=== PATIENT | female | born 1940 | race Two or more races ===

== ENCOUNTER 2018-10-30 12:37 | Emergency (ER) | payer SELFPAY ==
--- NOTE | 2018-10-30 13:09 | ER Document Report ---
ED General - General Chief Complaint: Leg Pain Stated Complaint: RIGHT LEG PAIN Time Seen by Provider: 10/30/18 12:55 Primary Care Provider: JOEL YOUSSEF MD [Primary Care Provider] - Follow up as needed Mode of Arrival: Ambulatory Information source: Patient, Relative, [facility] Records Notes: 78-year-old female with type 2 diabetes, hyperlipidemia, hypertension presents with complaint of right lower extremity pain that started 3 years prior to arrival. Patient recently arrived from [place] to her family here in [place] who is concerned for this right leg pain. Patient denies any fever, chills, chest pain, shortness of breath, abdominal pain, history of PE, DVT. TRAVEL OUTSIDE OF THE [place] IN LAST 30 DAYS: No - HPI Onset: Other Onset/Duration: Persistent Quality of pain: Achy Severity: Moderate Associated symptoms: denies: Chest pain, Fever, Hurts to breath, Leg swelling, Shortness of breath Exacerbated by: Movement, Walking Relieved by: Remaining still Similar symptoms previously: Yes - For 3 years Recently seen / treated by doctor: No - Related Data Allergies/Adverse Reactions: ciprofloxacin [From Cipro] Allergy (Verified 10/30/18 12:38) Past Medical History - General Information source: Patient, Relative - Social History Smoking Status: Never Smoker Chew tobacco use (# tins/day): No Frequency of alcohol use: None Drug Abuse: None Lives with: Family Family History: Reviewed & Not Pertinent Patient has suicidal ideation: No Patient has homicidal ideation: No - Past Medical History Cardiac Medical History: Reports: Hx Hypercholesterolemia, Hx Hypertension Endocrine Medical History: Reports: Hx Diabetes Mellitus Type 2 Renal/ Medical History: Denies: Hx Peritoneal Dialysis Review of Systems - Review of Systems Notes: REVIEW OF SYSTEMS: CONSTITUTIONAL : Denies fever, chills, or sweats. Denies recent illness. Denies weight loss, recent hospitalizations. EENT: Denies visual changes, eye pain. Denies sore throat, oral lesions, difficulty swallowing. CARDIOVASCULAR: Denies chest pain. Denies palpitations. Denies lower extremity edema. RESPIRATORY: Denies cough. Denies shortness of breath, wheezing. GASTROINTESTINAL: Denies abdominal pain or distention. Denies nausea, vomiting, or diarrhea. Denies blood in vomitus, stools, or per rectum. Denies black, tarry stools. Denies constipation. GENITOURINARY: Denies difficulty urinating, painful urination, frequency, blood in urine, or vaginal discharge. MUSCULOSKELETAL: Denies back or neck pain or stiffness. SKIN: Denies rash, lesions or sores. HEMATOLOGIC : Denies easy bruising or bleeding. LYMPHATIC: Denies swollen glands. NEUROLOGICAL: Denies confusion or altered mental status. Denies loss of consciousness. Denies dizziness or lightheadedness. Denies headache. Denies weakness or paralysis. Denies problems difficulty with ambulation, slurred speech. Denies sensory loss, numbness, or tingling. Denies seizures. PSYCHIATRIC: Denies anxiety or stress. Denies depression, suicidal ideation, or homicidal ideation. Denies visual or auditory hallucinations. Physical Exam - Vital signs Vitals: Temp Pulse Resp BP Pulse Ox 98.8 F 113 H 16 159/63 H 95 10/30/18 12:45 10/30/18 12:45 10/30/18 12:45 10/30/18 12:45 10/30/18 12:45 - Notes Notes: PHYSICAL EXAMINATION: GENERAL: Well-appearing, well-nourished and in no acute distress. HEAD: Atraumatic, normocephalic. EYES: Pupils equal round and reactive to light, extraocular movements intact, conjunctiva are normal. ENT: Nares patent, oropharynx clear without exudates. Moist mucous membranes. NECK: Normal range of motion, supple without lymphadenopathy LUNGS: Breath sounds clear to auscultation bilaterally and equal. No wheezes rales or rhonchi. HEART: Regular rate and rhythm without murmurs ABDOMEN: Soft, nontender, nondistended abdomen. No guarding, no rebound. No masses appreciated. Female : deferred Musculoskeletal: Normal range of motion, no pitting or edema. No cyanosis. No calf pain with palpation no erythema, no swelling. Pain with palpation to the medial aspect of the knee. Crepitus over the patella. NEUROLOGICAL: Cranial nerves grossly intact. Normal speech, normal gait. Normal sensory, motor exams PSYCH: Normal mood, normal affect. SKIN: Warm, Dry, normal turgor, no rashes or lesions noted. Course - Re-evaluation Re-evalutation: 10/31/18 12:44 Venous Doppler Study 10/30/18 13:07 IMPRESSION: NO EVIDENCE DVT OR SVT IN THE RIGHT LEG. Chest X-Ray 10/30/18 13:08 IMPRESSION: NO ACUTE DISEASE. Knee X-Ray 10/30/18 13:08 IMPRESSION: Degenerative arthritis of the right knee. Temp Pulse Resp BP Pulse Ox 98.8 F 90 16 135/70 H 98 10/30/18 12:45 10/30/18 13:09 10/30/18 15:01 10/30/18 15:01 10/30/18 15:01 78-year-old female presents with complaint of right lower extremity pain that has been ongoing for 3 years. Patiently recently arrived from [place] to live with her family who is at the bedside and is providing translation. Vital signs reviewed and within normal limits. Patient does not appear toxic or dehydrated. She is in no acute distress. Nursing notes reviewed. Patient has not been here previously. Venous Doppler of the right lower extremity was negative for DVT. Chest x-ray showed no acute disease. Right knee x-ray shows degenerative arthritis. Discussed findings with patient and patient's family. She does have an upcoming appointment with a new primary care physician. Advised to use Tylenol as needed for pain. Patient was evaluated and treated as appropriate for the patient's presenting symptoms and complaint, with consideration of any critical or life threatening conditions that may be associated with their obtained history and exam as noted above. All results were discussed with patient and patient's family who is at the bedside. patient provided the opportunity to ask questions, and express concerns. Patient was educated on sanjuanita atments based on their presumed diagnosis as noted above. At this time we will discharge the patient with return precautions and follow-up recommendations. Verbal discharge instructions given a the bedside. Medication warnings reviewed. Patient is in agreement with this plan and has verbalized understanding of return precautions. After careful consideration I feel that that patient can be safely discharged from the emergency department, they were advised to followup with a primary care physician in 2-3 days. Dictation on this chart was performed using voice recognition software and may result in unintended grammatical, spelling, syntax or errors. - Vital Signs Vital signs: Temp Pulse Resp BP Pulse Ox 98.8 F 90 16 135/70 H 98 10/30/18 12:45 10/30/18 13:09 10/30/18 15:01 10/30/18 15:01 10/30/18 15:01 - Diagnostic Test Radiology reviewed: Image reviewed, Reports reviewed Discharge - Discharge Clinical Impression: Arthritis of knee, right Right knee pain Qualifiers: Chronicity: chronic Qualified Code(s): M25.561 - Pain in right knee Hypertension Qualifiers: Hypertension type: unspecified Qualified Code(s): I10 - Essential (primary) hypertension Condition: Good Disposition: HOME, SELF-CARE Instructions: Arthritis ([facility]) Forms: Elevated Blood Pressure Referrals: JOEL YOUSSEF MD [Primary Care Provider] - Follow up as needed
--- NOTE | 2018-10-30 13:49 | RADIOLOGY REPORT (SQ) ---
EXAM DESCRIPTION: KNEE RIGHT 3 VIEWS COMPLETED DATE/TIME: 10/30/2018 1:36 pm REASON FOR STUDY: pain COMPARISON: None. NUMBER OF VIEWS: Four views. TECHNIQUE: AP, lateral, and both oblique radiographic images acquired of the right knee. LIMITATIONS: None. FINDINGS: MINERALIZATION: Normal. BONES: There is prominent osteophytic change noted at the lateral knee joint with peaking of the tibi al intercondylar eminence. Minimal osteophytic change laterally. Prominent osteophytic change bowser lofemoral joint. JOINT: No effusion. SOFT TISSUES: No soft tissue swelling. No radio-opaque foreign body. OTHER: No other significant finding. IMPRESSION: Degenerative arthritis of the right knee. TECHNICAL DOCUMENTATION: JOB ID: [id number] 2010 [employer]- All Rights Reserved Reading location - IP/workstation name: [email or web address]
--- NOTE | 2018-10-30 13:51 | RADIOLOGY REPORT (SQ) ---
EXAM DESCRIPTION: CHEST 2 VIEWS COMPLETED DATE/TIME: 10/30/2018 1:36 pm REASON FOR STUDY: tachy COMPARISON: None. EXAM PARAMETERS: NUMBER OF VIEWS: two views TECHNIQUE: Digital Frontal and Lateral radiographic views of the chest acquired. RADIATION DOSE: NA LIMITATIONS: none FINDINGS: LUNGS AND PLEURA: No acute infiltrates or effusions. MEDIASTINUM AND HILAR STRUCTURES: No masses or contour abnormalities. HEART AND VASCULAR STRUCTURES: The heart is normal with uncoiling thoracic aorta. Pulmonary vasculat ure is normal. HARDWARE: None in the chest. OTHER: Dorsal spondylosis. IMPRESSION: NO ACUTE DISEASE. TECHNICAL DOCUMENTATION: JOB ID: [id number] 2010 [employer]- All Rights Reserved Reading location - IP/workstation name: [email or web address]
--- NOTE | 2018-10-30 15:08 | RADIOLOGY REPORT (SQ) ---
EXAM DESCRIPTION: VENOUS UNILATERAL LOWER COMPLETED DATE/TIME: 10/30/2018 2:55 pm REASON FOR STUDY: RLE pain swelling COMPARISON: None. TECHNIQUE: Dynamic and static chavez scale and color images acquired of the right leg venous system. S elected spectral images acquired with additional compression and augmentation maneuvers. The contrala teral common femoral vein and saphenofemoral junction were also imaged. Images stored on PACS. LIMITATIONS: None. FINDINGS: COMMON FEMORAL: Normal phasicity, compression and augmentation. No visualized echogenic ma terial on chavez scale. No defects on color images. FEMORAL: Normal compression and augmentation. No visualized echogenic material on chavez scale. No defe cts on color images. POPLITEAL: Normal compression, augmentation. No visualized echogenic material on chavez scale. No defec ts on color images. CALF VESSELS: Normal compression, augmentation. No visualized echogenic material on chavez scale. No de fects on color images. GSV and SSV: Normal compression, augmentation. No visualized echogenic material on chavez scale. No def ects on color images. ANY DEEP VENOUS INSUFFICIENCY: Not evaluated. ANY EVIDENCE OF POPLITEAL CYST: No. OTHER: No other significant finding. CONTRALATERAL COMMON FEMORAL VEIN AND SAPHENOFEMORAL JUNCTION: Normal phasicity, compression and augmentation. No visualized echogenic material on chavez scale. No de fects on color images. IMPRESSION: NO EVIDENCE DVT OR SVT IN THE RIGHT LEG. TECHNICAL DOCUMENTATION: JOB ID: [id number] [employer]- All Rights Reserved Reading location - IP/workstation name: [email or web address]
[2018-10-30 15:12] VITALS: BP 135/70
== END 2018-10-30 15:20 | disposition home or self-care (01) ==
LOC: ER 12:37
DX: M17.11 Unilateral primary osteoarthritis, right knee (principal); M25.561 Pain in right knee; I10 Essential (primary) hypertension; E78.00 Pure hypercholesterolemia, unspecified; E11.9 Type 2 diabetes mellitus without complications; Z88.3 Allergy status to other anti-infective agents
CPT/HCPCS: 71046; 93971; 99284

== ENCOUNTER → 2018-11-12 | Outpatient (CLI) | payer OTHER ==
[2018-11-12 11:06] LABS: ALANINE AMINOTRANSFERASE 24 U/L (9-52); ALBUMIN 4.3 g/dL (3.5-5.0); ALKALINE PHOSPHATASE 92 U/L (38-126); ANION GAP 12 (5-19); ASPARTATE AMINO TRANSFERASE 20 U/L (14-36); BILIRUBIN,DIRECT 0.3 mg/dL (0.0-0.4); BILIRUBIN,TOTAL 0.5 mg/dL (0.2-1.3); BLOOD UREA NITROGEN 15 mg/dL (7-20); CALCIUM 10.1 mg/dL (8.4-10.2); CARBON DIOXIDE 29 mmol/L (22-30); CHLORIDE 98 mmol/L (98-107); GLUCOSE 179 mg/dL (75-110); POTASSIUM 4.2 mmol/L (3.6-5.0); SODIUM 139.3 mmol/L (137-145); TOTAL PROTEIN 7.8 g/dL (6.3-8.2)
== END ==
LOC: CCC 09:51
DX: E11.8 Type 2 diabetes mellitus with unspecified complications (principal); I10 Essential (primary) hypertension
CPT/HCPCS: 36415; 80053; 83036; 84443

== ENCOUNTER 2018-12-14 13:15 | Emergency (ER) | payer SELFPAY ==
[2018-12-14] MEDS ORDERED: IBUPROFEN 400 MG TABLET PO ONE (14:12)
--- NOTE | 2018-12-14 14:14 | ER Document Report ---
ED Medical Screen (RME) - General Chief Complaint: Arm Problem Stated Complaint: RIGHT ARM PAIN Time Seen by Provider: 12/14/18 14:04 [facility]: [facility] [Primary [facility] Provider] - Follow up as needed Mode of Arrival: Ambulatory Information source: Patient, Relative TRAVEL OUTSIDE OF THE [place] IN LAST 30 DAYS: No - HPI Patient complains to provider of: RIGHT ARM PAIN Notes: 12/14/18 14:13 Patient is here with complaints of right arm pain. Family members at the bedside translating. The patient states that she has had some right shoulder and arm pain for about a week now. The pain is worse with movement. No trauma or injury. The pain radiates around to the anterior aspect of the right shoulder/very upper chest. This pain is worse with movement and palpation. No shortness of breath, no fever. Exam Tenderness to palpation to the right posterior, anterior shoulder. No swelling. No redness. Normal pulse and sensation distally. Lungs clear and equal throughout. Heart sounds normal. Plan CBC, CMP, troponin, EKG, chest x-ray, shoulder x-ray. The pain does seem to be muscular skeletal nature, but based on the patient's age and risk factors, I do believe that it is worth checking for a cardiac cause of her pain. An initial examination was made on the patient as part of the triage process, and it was determined a more comprehensive evaluation was necessary. Initial labs were ordered and patient was transferred to another provider in the ED who assumed care and finished evaluation and plan. - Related Data Allergies/Adverse Reactions: ciprofloxacin [From Cipro] Allergy (Verified 10/30/18 12:38) Past Medical History - Social History Frequency of alcohol use: None Drug Abuse: None - Past Medical History Cardiac Medical History: Reports: Hx Hypercholesterolemia, Hx Hypertension Endocrine Medical History: Reports: Hx Diabetes Mellitus Type 2 Renal/ Medical History: Denies: Hx Peritoneal Dialysis Past Surgical History: Reports: Hx Cardiac Catheterization, Hx Cardiac Surgery Physical Exam - Vital signs Vitals: Temp Pulse Resp BP Pulse Ox 98.0 F 100 18 146/63 H 95 12/14/18 13:20 12/14/18 13:20 12/14/18 13:20 12/14/18 13:20 12/14/18 13:20 Course - Vital Signs Vital signs: Temp Pulse Resp BP Pulse Ox 98.0 F 100 18 146/63 H 95 12/14/18 13:20 12/14/18 13:20 12/14/18 13:20 12/14/18 13:20 12/14/18 13:20 Doctor's Discharge - Discharge Referrals: [facility] [Primary Care Provider] - Follow up as needed
[2018-12-14 14:41] LABS: ABSOLUTE EOSINOPHILS # (AUTO) 0.3 10^3/uL (0.0-0.6); ABSOLUTE LYMPHOCYTES (AUTO) 3.3 10^3/uL (0.5-4.7); ABSOLUTE MONOCYTES (AUTO) 0.9 10^3/uL (0.1-1.4); BASOPHILS % (AUTO) 0.5 % (0-2); EOSINOPHILS % (AUTO) 3.3 % (0-6); HEMATOCRIT 32.9 % (36.0-47.0); HEMOGLOBIN 11.1 g/dL (12.0-15.5); LYMPHOCYTES % (AUTO) 38.9 % (13-45); MEAN CORPUSCULAR HEMOGLOBIN 26.4 pg (27.0-33.4); MEAN CORPUSCULAR HGB CONC 33.9 g/dL (32.0-36.0); MEAN CORPUSCULAR VOLUME 78 fl (80-97); PLATELET COUNT 365 10^3/uL (150-450); RED BLOOD COUNT 4.22 10^6/uL (3.72-5.28); RED CELL DISTRIBUTION WIDTH 14.9 % (11.5-14.0); SEGMENTED NEUTROPHILS % (AUTO) 47.3 % (42-78); TOTAL CELLS COUNTED % (AUTO) 100 %; WHITE BLOOD COUNT 8.6 10^3/uL (4.0-10.5)
[2018-12-14 15:12] LABS: ALANINE AMINOTRANSFERASE 19 U/L (9-52); ALBUMIN 4.2 g/dL (3.5-5.0); ALKALINE PHOSPHATASE 91 U/L (38-126); ANION GAP 10 (5-19); ASPARTATE AMINO TRANSFERASE 20 U/L (14-36); BILIRUBIN,DIRECT 0.3 mg/dL (0.0-0.4); BILIRUBIN,TOTAL 0.3 mg/dL (0.2-1.3); BLOOD UREA NITROGEN 15 mg/dL (7-20); CALCIUM 10.1 mg/dL (8.4-10.2); CARBON DIOXIDE 27 mmol/L (22-30); CHLORIDE 102 mmol/L (98-107); GLUCOSE 124 mg/dL (75-110); POTASSIUM 4.1 mmol/L (3.6-5.0); TOTAL PROTEIN 7.7 g/dL (6.3-8.2)
[2018-12-14] MEDS ORDERED: HYDROCODONE/ACETAMINOPHEN 5-325 MG TABLET PO ONE (15:34)
--- NOTE | 2018-12-14 15:34 | ER Document Report ---
ED General - General Chief Complaint: Arm Problem Stated Complaint: RIGHT ARM PAIN Time Seen by Provider: 12/14/18 14:04 Primary [facility] Provider: [facility] [Primary Care Provider] - Follow up as needed Mode of Arrival: Ambulatory Information source: Patient - Upper Sorbian translation provided by son-in-law and patient's daughter TRAVEL OUTSIDE OF THE [place] IN LAST 30 DAYS: No - HPI Patient complains to provider of: Right shoulder pain/right upper extremity pain Onset: Other - Approximately 1 week ago Onset/Duration: Gradual, Persistent Quality of pain: Sharp Severity: Severe Pain Level: 5 Associated symptoms: None Exacerbated by: Movement, Coughing Similar symptoms previously: No Recently seen / treated by doctor: No Notes: 78-year-old female here with 1 week of atraumatic right shoulder pain. States anterior lateral and posterior aspects of the right shoulder are sore and are worse when she moves her right upper extremity. She relates a pain that goes all the way down to her wrist. When she makes a fist with her right hand she feels some pain shooting up her arm. Apparently according to the son-in-law she has had some problems with the shoulder in the past but until recently and is not been unbearable. She denies left-sided chest pain but does have right-sided chest wall pain. History of hypertension only. - Related Data Allergies/Adverse Reactions: ciprofloxacin [From Cipro] Allergy (Verified 10/30/18 12:38) Past Medical History - General Information source: Patient, Relative - Social History Smoking Status: Never Smoker Frequency of alcohol use: None Drug Abuse: None Family History: Reviewed & Not Pertinent Patient has suicidal ideation: No Patient has homicidal ideation: No - Past Medical History Cardiac Medical History: Reports: Hx Hypercholesterolemia, Hx Hypertension Endocrine Medical History: Reports: Hx Diabetes Mellitus Type 2 Renal/ Medical History: Denies: Hx Peritoneal Dialysis Past Surgical History: Reports: Hx Cardiac Catheterization, Hx Cardiac Surgery Review of Systems - Review of Systems Notes: Constitutional: No fevers. No chills. EENT: No eye redness. No eye pain. No ear pain. No sore throat. Cardiovascular: No chest pain. No palpitations. Respiratory: No cough. No shortness of breath. No respiratory distress. Gastrointestinal: No abdominal pain. No nausea, vomiting, or diarrhea. Genitourinary: Atraumatic. No lesions. No pain. No discharge. Musculoskeletal: Atraumatic. No swelling. No deformities. Positive right shoulder and right upper extremity pain Skin: No rash or lesions. Lymphatic: No swollen lymph nodes. Neurologic: No headache. No syncope. Psychiatric: No suicidal or homicidal ideation. Physical Exam - Vital signs Vitals: Temp Pulse Resp BP Pulse Ox 98.0 F 100 18 146/63 H 95 12/14/18 13:20 12/14/18 13:20 12/14/18 13:20 12/14/18 13:20 12/14/18 13:20 - Notes Notes: General: Well-developed, well-nourished. In no acute distress. Non-toxic appearing. Cardiac: Well-perfused. Regular rate and rhythm. No murmurs, rubs, or gallops. Pulmonary: No respiratory distress. No cyanosis. Bilateral lung fiels are clear to auscultation. Abdominal: Non-distended. Non-rigid. Bowels sounds are present in all four quadrants. No guarding or rebound. HEENT: Head is atraumatic. Conjunctivae not reddened. No tearing. PERRL. EOMI. Orbits atraumatic. No periorbital swelling or erythema. Oropharynx is without erythema, swelling, or exudates. Neck: Supple. No adenopathy. No meningismus. Dermatologic: Warm with good turgor. No rash. Atraumatic. Chest: Atraumatic. No chest wall tenderness to palpation. Musculoskeletal: Moves all extremities well. No range of motion deficits. no muscular or joint tenderness. No paraspinal muscle tenderness. no midline spinal tenderness or step-off. There is diffuse anterior posterior and lateral right shoulder tenderness to palpation. No obvious bony deformity. Patient has full range of motion of the right shoulder with obvious discomfort. There is no soft tissue swelling. There is no erythema. Distal pulses in the radial and ulnar arteries are 2+ bilaterally. Genitourinary: Examination deferred Neurologic: No gross neurologic deficits. Psychiatric: Normal mood. Course - Re-evaluation Re-evalutation: 12/14/18 15:33 I think this is most likely tendinitis or pinched nerve with neuropathic pain going down the arm. Pit provider did put in some work-up for cardiac which I think is certainly appropriate given the patient's age and history of hypertens ion. 12/14/18 16:04 Labs reassuring. X-ray is also reassuring. I think this is musculoskeletal in nature. We will give her a sling. Medrol Dosepak and Ashcamp as needed for pinched nerve. Follow-up with orthopedics in a week if no better. - Vital Signs Vital signs: Temp Pulse Resp BP Pulse Ox 98.0 F 100 18 146/63 H 95 12/14/18 13:20 12/14/18 13:20 12/14/18 13:20 12/14/18 13:20 12/14/18 13:20 - Laboratory Result Diagrams: 12/14/18 14:28 12/14/18 14:28 Laboratory results interpreted by me: 12/14/18 12/14/18 14:28 14:28 Hgb 11.1 L Hct 32.9 L MCV 78 L MCH 26.4 L RDW 14.9 H Glucose 124 H - EKG Interpretation by Me EKG shows normal: Sinus rhythm, Conception, Intervals, QRS Complexes, ST-T Waves Discharge - Discharge Clinical Impression: Pinched nerve in shoulder Qualifiers: Laterality: right Qualified Code(s): G56.81 - Other specified mononeuropathies of right upper limb Condition: Good Disposition: HOME, SELF-CARE Instructions: Neuropathy ([facility]) Additional Instructions: Wear the sling for comfort. Ice the shoulder 20 minutes/h to help with inflammation. Medrol Dosepak as needed for inflammation. Ash[place] as needed for pain. Follow-up with orthopedic doctor if this does not improve in 1 week. Prescriptions: Hydrocodone/Acetaminophen [Ashcamp 5-325 Tablet] 1 each PO Q6HP PRN #15 tablet PRN Reason: Methylprednisolone [Medrol Dosepack (4 mg/Tab) 21 Tab/Dosepak] 21 tab PO DAILY #1 dspk Referrals: [facility] [Primary Care Provider] - Follow up as needed
--- NOTE | 2018-12-14 15:36 | RADIOLOGY REPORT (SQ) ---
EXAM DESCRIPTION: SHOULDER RIGHT 2 OR MORE VIEWS COMPLETED DATE/TIME: 12/14/2018 2:41 pm REASON FOR STUDY: PAIN COMPARISON: None. NUMBER OF VIEWS: Three views. TECHNIQUE: Internal rotation, external rotation, and Y view images acquired of the right shoulder. LIMITATIONS: None. FINDINGS: MINERALIZATION: Normal. BONES: No acute fracture or dislocation. No worrisome bone lesions. JOINTS: No dislocation. Moderate right acromioclavicular arthrosis. VISUALIZED LUNGS AND RIBS: No pneumothorax. No rib fracture. SOFT TISSUES: No radiopaque foreign body. OTHER: No other significant finding. IMPRESSION: No fracture or dislocation of the right shoulder. Moderate right acromioclavicular arth rosis. TECHNICAL DOCUMENTATION: JOB ID: [id number] [employer]- All Rights Reserved Reading location - IP/workstation name: [email or web address]
--- NOTE | 2018-12-14 15:37 | RADIOLOGY REPORT (SQ) ---
EXAM DESCRIPTION: CHEST 2 VIEWS COMPLETED DATE/TIME: 12/14/2018 2:41 pm REASON FOR STUDY: PAIN COMPARISON: 10/30/2018 EXAM PARAMETERS: NUMBER OF VIEWS: two views TECHNIQUE: Digital Frontal and Lateral radiographic views of the chest acquired. RADIATION DOSE: NA LIMITATIONS: none FINDINGS: LUNGS AND PLEURA: No opacities, masses or pneumothorax. No pleural effusion. MEDIASTINUM AND HILAR STRUCTURES: No masses or contour abnormalities. HEART AND VASCULAR STRUCTURES: Heart normal size. No evidence for failure. BONES: Disc degenerative disease of the thoracic spine. HARDWARE: None in the chest. OTHER: No other significant finding. IMPRESSION: No acute abnormality of the lungs. No focal airspace opacity. TECHNICAL DOCUMENTATION: JOB ID: [id number] [employer]- All Rights Reserved Reading location - IP/workstation name: [email or web address]
[2018-12-14 16:48] VITALS: BP 133/72
--- NOTE | 2018-12-14 18:40 | EKG REPORT ---
SEVERITY:- OTHERWISE NORMAL ECG - SINUS RHYTHM BORDERLINE LEFT AXIS DEVIATION : Confirmed by: Lui Davis MD 14-Dec-2018 18:39:18
== END 2018-12-14 16:44 | disposition home or self-care (01) ==
LOC: ER 13:15
DX: G56.81 Other specified mononeuropathies of right upper limb (principal); M79.601 Pain in right arm; E78.00 Pure hypercholesterolemia, unspecified; I10 Essential (primary) hypertension; E11.9 Type 2 diabetes mellitus without complications; Z88.3 Allergy status to other anti-infective agents
CPT/HCPCS: 93005; 99283; 36415; 85025; 80053; 84484; 71046; 73030; 93010; J3490

== ENCOUNTER → 2019-01-07 | Outpatient (CLI) | payer OTHER ==
[2019-01-09 13:36] LABS: CREATININE URINE 165.8 mg/dL (Not Estab.); MICROALBUMIN URINE 26.9 ug/mL (Not Estab.)
[2019-01-09 19:36] LABS: URINE CREATININE 60.9 mg/dL (15-278)
== END ==
LOC: CCC 08:58
DX: E11.8 Type 2 diabetes mellitus with unspecified complications (principal)
CPT/HCPCS: 36415; 82043; 82570; 83036; 84436; 84443

== ENCOUNTER → 2020-07-27 | Outpatient (CLI) | payer OTHER ==
[2020-07-27 11:01] LABS: ABSOLUTE EOSINOPHILS # (AUTO) 0.2 10^3/uL (0.0-0.6); ABSOLUTE LYMPHOCYTES (AUTO) 3.1 10^3/uL (0.5-4.7); ABSOLUTE MONOCYTES (AUTO) 0.7 10^3/uL (0.1-1.4); ABSOLUTE NEUT (AUTO) 4.4 10^3/uL (1.7-8.2); BASOPHILS % (AUTO) 0.6 % (0-2); EOSINOPHILS % (AUTO) 2.7 % (0-6); HEMOGLOBIN 10.9 g/dL (12.0-15.5); LYMPHOCYTES % (AUTO) 36.4 % (13-45); MEAN CORPUSCULAR HEMOGLOBIN 25.5 pg (27.0-33.4); MEAN CORPUSCULAR VOLUME 77 fl (80-97); MONOCYTES % (AUTO) 8.6 % (3-13); PLATELET COUNT 338 10^3/uL (150-450); RED BLOOD COUNT 4.27 10^6/uL (3.72-5.28); RED CELL DISTRIBUTION WIDTH 16.3 % (11.5-14.0); SEGMENTED NEUTROPHILS % (AUTO) 51.7 % (42-78); TOTAL CELLS COUNTED % (AUTO) 100 %; WHITE BLOOD COUNT 8.5 10^3/uL (4.0-10.5)
[2020-07-27 11:24] LABS: ANION GAP 10 (5-19); BLOOD UREA NITROGEN 13 mg/dL (7-20); CALCIUM 9.4 mg/dL (8.4-10.2); CARBON DIOXIDE 29 mmol/L (22-30); CHLORIDE 98 mmol/L (98-107); GLUCOSE 105 mg/dL (75-110); IRON 63.9 ug/dL (37-170); POTASSIUM 4.3 mmol/L (3.6-5.0); TRIGLYCERIDES 205 mg/dL (<150)
[2020-07-27 11:35] LABS: DIRECT LDL 45 mg/dL (<100)
== END ==
LOC: CCC 08:15
PROVIDERS: ATTEND Family Medicine
DX: D64.9 Anemia, unspecified (principal); E11.8 Type 2 diabetes mellitus with unspecified complications
CPT/HCPCS: 36415; 80048; 80061; 82607; 82728; 82746; 83036; 83540; 84443; 85025

== ENCOUNTER → 2020-08-10 | Outpatient (CLI) | payer OTHER ==
[2020-08-10 10:47] LABS: ABSOLUTE EOSINOPHILS # (AUTO) 0.2 10^3/uL (0.0-0.6); ABSOLUTE LYMPHOCYTES (AUTO) 2.8 10^3/uL (0.5-4.7); ABSOLUTE MONOCYTES (AUTO) 0.6 10^3/uL (0.1-1.4); ABSOLUTE NEUT (AUTO) 5.3 10^3/uL (1.7-8.2); BASOPHILS % (AUTO) 0.5 % (0-2); EOSINOPHILS % (AUTO) 2.4 % (0-6); HEMATOCRIT 32.7 % (36.0-47.0); HEMOGLOBIN 10.8 g/dL (12.0-15.5); LYMPHOCYTES % (AUTO) 30.7 % (13-45); MEAN CORPUSCULAR VOLUME 79 fl (80-97); MONOCYTES % (AUTO) 7.2 % (3-13); PLATELET COUNT 303 10^3/uL (150-450); RED BLOOD COUNT 4.16 10^6/uL (3.72-5.28); RED CELL DISTRIBUTION WIDTH 16.9 % (11.5-14.0); SEGMENTED NEUTROPHILS % (AUTO) 59.2 % (42-78); TOTAL CELLS COUNTED % (AUTO) 100 %
[2020-08-10 11:18] LABS: FREE T3 3.77 pg/mL (2.77-5.27)
[2020-08-10 11:30] LABS: ERYTHROCYTE SEDIMENTATION RATE 31 mm/hr (0-30)
[2020-08-10 11:32] LABS: THYROID STIMULATING HORMONE 1.13 uIU/mL (0.47-4.68)
[2020-08-10 12:39] LABS: FREE T4 (FREE THYROXINE) 0.94 ng/dL (0.78-2.19)
[2020-08-12 12:37] LABS: THYROID PEROXIDASE (TPO) AB <9 IU/mL (0-34)
[2020-08-12 12:52] LABS: THYROGLOBULIN AB 434.9 IU/mL (0.0-0.9)
== END ==
LOC: CCC 08:49
DX: E03.9 Hypothyroidism, unspecified (principal); E04.9 Nontoxic goiter, unspecified; D64.9 Anemia, unspecified
CPT/HCPCS: 36415; 82607; 82746; 84439; 84443; 84481; 85025; 85652; 86376